=== PATIENT | male | born 1965 | race Caucasian/White ===

== ENCOUNTER 2018-07-31 12:50 | Emergency (ER) | payer BC ==
[~2018-07-31] VITALS: Ht 177.8 cm; Wt 90.9 kg
[~2018-07-31 12:50] MED LIST: HCTZ12.5TAB PO; NORCO 325 MG-51 TAB PO; NORCO 325 MG-7.1 TAB PO; NORVASC 5MG5 MG/TAB PO; TOPROL XL100 MG PO
[2018-07-31 12:56] VITALS: TEMP 97.9
[2018-07-31 13:27] LABS: BASO # 0.1 (0.0-0.2); BASO % 0.6 % (0.0-2.0); EOS # 0.2 (0.0-0.7); EOS % 2.1 % (0-4.0); GRAN # 7.6 (1.4-6.5); GRAN % 66.7 % (42.2-75.2); HEMOGLOBIN 16.4 g/dl (13.5-18.0); LYMPH # 2.7 (1.2-3.4); LYMPH % 23.5 % (20.0-51.0); MEAN CELL VOLUME 88 fl (80.0-100.0); MEAN CORPUSCULAR HEMOGLOBIN 31 pg (27.0-31.0); MEAN CORPUSCULAR HGB CONC 35 g/dl (33.0-37.0); MEAN PLATELET VOLUME 9.2 fl (7.4-10.4); MONO # 0.8 (0.1-0.6); MONO % 6.9 % (1.7-9.3); PLATELET COUNT 291 K/mm3 (130-400); RED BLOOD COUNT 5.35 M/mm3 (4.20-5.60)
[2018-07-31] MEDS ORDERED: TOPROL XL200 MG PO (13:28)
[2018-07-31 13:38] LABS: CREATININE, serum 0.84 mg/dL (0.66-1.25)
[2018-07-31 13:39] LABS: ALBUMIN 4.6 gm/dL (3.5-5.0); BILIRUBIN,TOTAL 0.7 mg/dL (0.0-1.0); CALCIUM 9.8 mg/dL (8.4-10.2); POTASSIUM 3.4 mmol/L (3.4-5.0); TOTAL PROTEIN 8.2 gm/dL (6.4-8.2)
[2018-07-31 14:06] LABS: COLLECTION METHOD CLEAN CATCH
[2018-07-31 14:16] LABS: MUCOUS Present /lpf; PH 5 (5-8); SQUAMOUS EPITHELIAL 0-2 /hpf; URINE APPEARANCE Clear; URINE BACTERIA None Seen /hpf; URINE BILIRUBIN Negative (NEGATIVE); URINE BLOOD 1+ (NEGATIVE); URINE COLOR Yellow; URINE GLUCOSE Negative (NEGATIVE); URINE KETONE Negative (NEGATIVE); URINE LEUKOCYTE ESTERASE Negative (NEGATIVE); URINE NITRATE Negative (NEGATIVE); URINE PROTEIN(semi-quant) Negative (NEGATIVE); URINE RBC 0-2 /hpf; URINE UROBILINOGEN Negative (NEGATIVE)
[2018-07-31] MEDS ORDERED: NORCO 325 MG-51 TAB PO (15:19)
[2018-07-31 15:44] VITALS: BP 123/86; PULSE 59
== END 2018-07-31 15:45 | disposition home or self-care (01) ==
LOC: COL.ER 12:50
PROVIDERS: Emergency Medicine
DX: K40.90 Unilateral inguinal hernia, without obstruction or gangrene, not specified as recurrent (principal); I10 Essential (primary) hypertension
CPT/HCPCS: J1885; J7030; Q9967

== ENCOUNTER 2018-08-13 12:57 | Day surgery (SDC) | payer BC ==
[2018-08-13] VITALS (7 sets, daily range): BP systolic 106–131; BP diastolic 60–87; PULSE 60–74; TEMP 97.9–98.5
[~2018-08-13] VITALS: Ht 177.8 cm; Wt 92.7 kg
[~2018-08-13 12:57] MED LIST changes: +TOPROL XL200 MG PO
[2018-08-13] MEDS ORDERED: NORVASC 10MG10 MG PO (13:49)
[2018-08-13] MEDS ORDERED: MOTRIN 200200 MG/TAB PO (13:50)
--- NOTE | 2018-08-13 19:50 | NUR ---
Patient to room 322-2 from OR. Patient alert & oriented. Friend at bedside. Patient ready to discharge tonight. Vss on room air. Dinner ordered & he tolerated well. He has voided. Lap site times 3 across his abdomen. Reported off to Kay GARCIA
--- NOTE | 2018-08-13 20:00 | NUR ---
Report received from RADHA Dillard. Assessment completed. Patient is A&O x 4. Post-op vitals stable. Denies any pain. Abdominal lap sites x 3 with bandaids intact with no drainage noted. Tolerating PO with no c/o nausea. Left hand IV to INT. Voiding with no difficulities. Patient has met discharge criteria and is ready to discharge home.
--- NOTE | 2018-08-13 20:15 | NUR ---
Discharge instructions given to patient and reviewed with patient and . All questions answered and scripts given. INT discontinued from left hand. Escorted out via wheelchair with staff and . All belongings sent with.
== END 2018-08-13 20:15 | disposition home or self-care (01) ==
LOC: SDCO 12:57 → SURG 18:05 → SDCO 20:15
DX: K40.91 Unilateral inguinal hernia, without obstruction or gangrene, recurrent (principal); K43.9 Ventral hernia without obstruction or gangrene; I10 Essential (primary) hypertension; Z80.42 Family history of malignant neoplasm of prostate; Z80.52 Family history of malignant neoplasm of bladder; Z80.8 Family history of malignant neoplasm of other organs or systems; Z82.49 Family history of ischemic heart disease and other diseases of the circulatory system; F17.220 Nicotine dependence, chewing tobacco, uncomplicated
CPT/HCPCS: OP; C1781; J0690; J1100; J1885; J2250; J2704; J3010; J7120